=== PATIENT | male | born 1955 | race Caucasian/White ===

== ENCOUNTER 2018-09-04 07:27 | Day surgery (SDC) | payer OTHER ==
[2018-09-02 16:00] VITALS: BP 137/81
[2018-09-02 16:00] LABS: BASOPHILS % (AUTO) 0.4 % (0.0-5.0); EOSINOPHILS % (AUTO) 0.8 % (0.0-8.0); HEMATOCRIT 41.7 % (42-54); LYMPHOCYTES % (AUTO) 14.2 % (21.0-51.0); MEAN CORPUSCULAR HEMOGLOBIN 29.3 pg (27.0-33.0); MEAN CORPUSCULAR HGB CONC 33.6 g/dL (32.0-36.0); MONOCYTES % (AUTO) 7.6 % (3.0-13.0); PLATELET COUNT (AUTO) 229 K/uL (130-400); RED BLOOD CELL COUNT(AUTO) 4.79 MIL/uL (4.50-6.20); WHITE BLOOD COUNT (AUTO) 6.4 K/uL (4.8-10.8)
[2018-09-04] VITALS (11 sets, daily range): BP systolic 96–140; BP diastolic 57–88
[~2018-09-04] VITALS: Ht 175.3 cm; Wt 73.8 kg
[2018-09-04] MEDS: CEFTRIAXONE SODIUM 1 GM IVP SCH ×2 (06:00→08:56)
[~2018-09-04 07:27] MED LIST: ESZO2TAB31 PO; FLUO60TA PO; PANT40SU PO; TRAZ-187 PO
[2018-09-04] MEDS ORDERED: LACTATED RINGERS 1000ML 1,000 ML IV ONE (08:30)
[2018-09-04] MEDS ORDERED: PROPOFOL 10 MG/ML 20ML VIAL IV ONE (08:40)
[2018-09-04] MEDS ORDERED: FENTANYL CITRATE PF 50 MCG/1 ML 2ML VIAL ONE (08:40)
[2018-09-04] MEDS ORDERED: LIDOCAINE PF 2% 5ML ABBOJECT ONE (08:40)
[2018-09-04] MEDS ORDERED: MIDAZOLAM HCL 1 MG/ML 2ML VIAL ONE (08:53)
--- NOTE | 2018-09-04 10:00 | NUR ---
ASSESSMENT RECEIVED PT FROM PACU STAFF Amber NORIEGA RN. PT AAOX3. 17F GARCIA CATH DRAINING TO GRAVITY AT BEDSIDE WITH CLEAR YELLOW URINE IN BAG. DENIES ANY DISCOMFORT AT THIS TIME. AT BEDSIDE.
[2018-09-04] MEDS ORDERED: PHENAZOPYRIDINE HCL 200 MG TABLET ONE (10:08)
--- NOTE | 2018-09-04 10:30 | NUR ---
DISCHARGE ORAL AND WRITTEN DISCHARGE INSTRUCTIONS GIVEN TO PT AND PTS . GARCIA BAG AND LEG BAG GIVEN TO PT TO USE AT HOME PER DR. SANTILLAN. INSTRUCTIONS GIVEN ON CHANGING DEVICES USING ASEPTIC TECHNIQUE. BOTH VERBALIZED UNDERSTANDING. PRESCRIPTION GIVEN TO PTS . NO OTHER QUESTIONS AT THIS TIME.
== END 2018-09-04 10:45 | disposition home or self-care (01) ==
LOC: DAH 07:27
PROVIDERS: ATTEND Urology
DX: N35.919 Unspecified urethral stricture, male, unspecified site (principal); R39.198 Other difficulties with micturition; K21.9 Gastro-esophageal reflux disease without esophagitis; F41.9 Anxiety disorder, unspecified; Z85.46 Personal history of malignant neoplasm of prostate; Z98.890 Other specified postprocedural states; Z79.899 Other long term (current) drug therapy
CPT/HCPCS: 36415; 52281; 85025; A4218; A4344; A4358; A4510; A4600; J0696; J2001; J2250; J2704; J3010; J7030; J7120 ×2